=== PATIENT | female | born 1940 | race African-American/Black ===

== ENCOUNTER 2018-09-15 10:17 | Emergency (ER) | payer OTHER ==
[~2018-09-15] VITALS: Ht 152.4 cm; Wt 58.1 kg
[2018-09-15] MEDS ORDERED: NORVASC10 MG (10:42)
[2018-09-15] MEDS ORDERED: TOPROL XL100 M1 (10:42)
[2018-09-15] MEDS ORDERED: ASA81 MG (10:42)
[2018-09-15] MEDS ORDERED: FOLGARD TABLET1 EACH (10:42)
[2018-09-15] MEDS ORDERED: LAMICTAL100 M1 (10:42)
[2018-09-15] MEDS ORDERED: ZOCOR20 MG (10:43)
[2018-09-15] MEDS ORDERED: HYDRODIURIL12.5 MG (10:43)
== END 2018-09-15 16:13 | disposition home or self-care (01) ==
LOC: ER 10:17
DX: R07.89 Other chest pain (principal); N39.0 Urinary tract infection, site not specified

== ENCOUNTER 2020-12-16 11:22 | Emergency (ER) | payer OTHER ==
[~2020-12-16] VITALS: Ht 152.4 cm; Wt 51.7 kg
[~2020-12-16 11:22] MED LIST: ASA81 MG; FOLGARD TABLET1 EACH; HYDRODIURIL12.5 MG; LAMICTAL100 M1; NORVASC10 MG; TOPROL XL100 M1; ZOCOR20 MG
== END 2020-12-16 16:40 | disposition home or self-care (01) ==
LOC: ER 11:22
DX: R53.81 Other malaise (principal); Z20.822 Contact with and (suspected) exposure to COVID-19

== ENCOUNTER 2024-09-04 17:12 | Emergency (ER) | payer OTHER ==
[~2024-09-04] VITALS: Ht 152.4 cm; Wt 54.4 kg
== END 2024-09-04 20:25 | disposition home or self-care (01) ==
LOC: ER 17:12
DX: G89.11 Acute pain due to trauma (principal); S92.911A Unspecified fracture of right toe(s), initial encounter for closed fracture; X50.1XXA Overexertion from prolonged static or awkward postures, initial encounter; Y93.89 Activity, other specified; Y92.89 Other specified places as the place of occurrence of the external cause